=== PATIENT | female | born 1995 | race Caucasian/White ===

== ENCOUNTER 2018-03-01 17:57 | Emergency (ER) | payer OTHER ==
[2018-03-01 18:03] VITALS: BP 124/76; PULSE 83; TEMP 98.5; BMI 24.0
--- NOTE | 2018-03-01 18:13 | PDOC ---
History of Present Illness - General Chief Complaint: Injury Stated Complaint: FALL/INJURY Time Seen by Provider: 03/01/18 18:08 History Source: Patient Exam Limitations: No Limitations - History of Present Illness Initial Comments: 03/01/18 18:31 pt fell down 6 steps this AM twisted right ankle. 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 no meds taken [employer]. no history of ankle injury in the past. Past History - Past Medical History Allergies/Adverse Reactions: Allergies Allergy/AdvReac Type Severity Reaction Status Date / Time No Known Allergies Allergy Verified 03/01/18 18:03 Home Medications: Ambulatory Orders NK [No Known Home Medication] 03/01/18 COPD: No - Suicide/Smoking/Psychosocial Hx Smoking History: Never smoked *Physical Exam - Vital Signs Last Vital Signs Temp Pulse Resp BP Pulse Ox 98.5 F 83 18 124/76 99 03/01/18 18:00 03/01/18 18:00 03/01/18 18:00 03/01/18 18:00 03/01/18 18:00 - Physical Exam General Appearance: Yes: Nourished, Appropriately Dressed HEENT: positive: EOMI, LINA Musculoskeletal: positive: Normal Inspection Extremity: positive: Normal Capillary Refill Integumentary: positive: Normal Color, Dry, Warm Neurologic: positive: Fully Oriented, Alert, Normal Mood/Affect, Normal Response , Motor Strength 5/5 ED Treatment Course - RADIOLOGY Radiology Studies Ordered: Category Date Time Status ANKLE & FOOT-RIGHT* [RAD] Stat Radiology 03/01/18 18:08 Ordered Medical Decision Making - Medical Decision Making 03/01/18 18:32 cc: right ankle injury this am swelling and pain to the lateral maleolus noted nv intact no deformity xray done neg for acute fracture sig swelling laterally will place in rodney dressing *DC/Admit/Observation/Transfer Diagnosis at time of Disposition: Right ankle sprain Qualifiers: Encounter type: initial encounter Involved ligament of ankle: other ligament Qualified Code(s): S93.491A - Sprain of other ligament of right ankle, initial encounter - Discharge Dispostion Disposition: HOME Condition at time of disposition: Good - Referrals Referrals: Obed Serna MD [Staff Physician] - - Patient Instructions Additional Instructions: elevate and apply ice every 2hrs for 20 minutes for the next 2 days while awake take ibuprofen 800mg every 8hrs for pain as needed use the gume wrap dressing at all times do not remove unless to bathe or cover with plastic bag when you bathe follow with the orthopedist next week, then you can see if they want the wrap removed - Post Discharge Activity Forms/Work/School Notes: Back to Work
== END 2018-03-01 18:43 | disposition home or self-care (01) ==
LOC: JERFT 17:57
DX: S93.491A Sprain of other ligament of right ankle, initial encounter (principal); X50.1XXA Overexertion from prolonged static or awkward postures, initial encounter; W10.8XXA Fall (on) (from) other stairs and steps, initial encounter; Y93.89 Activity, other specified; Y92.89 Other specified places as the place of occurrence of the external cause; Y99.8 Other external cause status
CPT/HCPCS: 73610-TC-RT-FY; 73630-TC-RT-FY; 99281-25

== ENCOUNTER 2020-04-18 19:33 | Emergency (ER) | payer OTHER ==
[2020-04-18 19:50] VITALS: BP 120/67; PULSE 100; TEMP 98; BMI 30.1
--- NOTE | 2020-04-18 19:52 | PDOC ---
Rapid Medical Evaluation Chief Complaint: Foreign Body (FB) Time Seen by Provider: 04/18/20 19:46 Medical Evaluation: Allergies Allergy/AdvReac Type Severity Reaction Status Date / Time No Known Allergies Allergy Verified 03/26/18 16:22 04/18/20 19:47 24 year old female s/p ear piercing 5 days ago now with increased swelling to the tragus. earring is imbedded in skin. patient also c/o b/l ear pain, patient has been swimming A; earring stuck in skin; ear pain P patient to fast track for further management of care. Discharge Disposition - Diagnosis Foreign body in ear lobe Qualifiers: Encounter type: sequela Laterality: left Qualified Code(s): S00.452S - Superficial foreign body of left ear, sequela Ear pain Qualifiers: Laterality: bilateral Qualified Code(s): H92.03 - Otalgia, bilateral - Referrals - Patient Instructions - Post Discharge Activity
--- NOTE | 2020-04-18 20:29 | PDOC ---
History of Present Illness - General Chief Complaint: Foreign Body (FB) Stated Complaint: L/EAR/INJURY/PAIN Time Seen by Provider: 04/18/20 19:46 - History of Present Illness Initial Comments: 04/18/20 20:23 24-year-old female without comorbidities presents for evaluation of left ear pain. Patient states an earring was placed she points to the tragus of the left ear and since that time over the last few days it has been become increasingly painful and swollen no fever or systemic symptoms she does have drainage Past History - Medical History Allergies/Adverse Reactions: Allergies Allergy/AdvReac Type Severity Reaction Status Date / Time No Known Allergies Allergy Verified 03/26/18 16:22 Home Medications: Ambulatory Orders Cephalexin [Keflex] 500 mg PO QID #40 capsule 04/18/20 Ciprofloxacin HCl/Dexameth [Ciprodex Otic Suspension] 4 drop BID #1 bottle 04/18/20 Sulfamethoxazole/Trimethoprim [Bactrim Ds -] 1 tab PO BID #14 tablet 04/18/20 COPD: No - Psycho-Social/Smoking History Smoking History: Never smoked Have you smoked in the past 12 months: No - Substance Abuse Hx (Audit-C & DAST Scrn) How often the patient has a drink containing alcohol: Never Score: In Men: 4 or > Positive; In Women: 3 or > Positive: 0 Screen Result (Pos requires Nsg. Audit-10AR): Negative Review of Systems - Review of Systems HEENTM: Yes: Ear Pain *Physical Exam - Vital Signs Last Vital Signs Temp Pulse Resp BP Pulse Ox 98.0 F 100 H 20 120/67 100 04/18/20 19:48 04/18/20 19:48 04/18/20 19:48 04/18/20 19:48 04/18/20 19:48 - Physical Exam 04/18/20 20:24 There is erythema about the left tragus with induration warmth and tenderness. No purulent drainage. There is a small hole about 1 mm in diameter on the anterior aspect of the left tragus purulent material in the auditory canal tympanic membrane normal Medical Decision Making - Medical Decision Making 04/18/20 20:24 The area was anesthetized with 1 cc of 1% lidocaine using 2 needle drivers the earring was removed without difficulty. Ciprodex and Keflex and Bactrim for cellulitis and otitis externa follow-up with ENT in 1 to 2 days without fail I have reviewed the pathophysiology with the patient. They are in agreement with the treatment plan all questions were answered to their satisfaction. Understanding for follow-up without fail was also conveyed to the patient. Again they are in agreement. 04/18/20 20:26 Patient assures me there is no chance of Discharge - Discharge Information Problems reviewed: Yes Clinical Impression/Diagnosis: Otitis externa, Cellulitis Foreign body in ear lobe Qualifiers: Encounter type: sequela Laterality: left Qualified Code(s): S00.452S - Superficial foreign body of left ear, sequela Ear pain Qualifiers: Laterality: bilateral Qualified Code(s): H92.03 - Otalgia, bilateral Condition: Stable Disposition: HOME - Admission No - Follow up/Referral Referrals: Deborah Perez [Primary Care Provider] - Hema Lentz MD [Staff Physician] - - Patient Discharge Instructions Additional Instructions: Please take and finish the antibiotics as directed and return to the emergency room should symptoms worsen. Without fail follow-up with ear nose and throat doctor in 1 to 2 days for further evaluation and treatment options. - Post Discharge Activity
== END 2020-04-18 21:06 | disposition home or self-care (01) ==
LOC: JER 19:33 → JERFT 19:33
DX: S00.452A Superficial foreign body of left ear, initial encounter (principal); H92.03 Otalgia, bilateral
CPT/HCPCS: 99282-25